=== PATIENT | female | born 1975 | race Asian ===

== ENCOUNTER 2021-01-11 18:30 | Emergency (ER) | payer OTHER ==
[~2021-01-11] VITALS: Ht 165.1 cm; Wt 57.0 kg
[2021-01-11] MEDS ORDERED: ONDANSETRON HCL 4MG/2ML INJ IV STA (18:41)
[2021-01-11] MEDS ORDERED: HYDROMORPHONE HCL/PF 2MG/ML CPJ IV ONE ×2 (18:45→22:15)
[2021-01-11] MEDS ORDERED: SODIUM CHLORIDE 0.9% 1,000 ML IV ONE (18:45)
[2021-01-11] MEDS ORDERED: ETOMIDATE 2MG/ML 10ML VIAL IV ONE (21:00)
[2021-01-11] MEDS ORDERED: ONDANSETRON HCL 4MG/2ML INJ IV ONE (22:15)
[2021-01-11] MEDS ORDERED: HYDR-4348 MT (22:51)
[2021-01-11] MEDS ORDERED: ONDA4TAB5 MT (22:51)
[2021-01-11 23:00] VITALS: BP 111/61
== END 2021-01-11 23:00 | disposition home or self-care (01) ==
LOC: ER 18:30
DX: S62.231A Other displaced fracture of base of first metacarpal bone, right hand, initial encounter for closed fracture (principal); S16.1XXA Strain of muscle, fascia and tendon at neck level, initial encounter; S50.11XA Contusion of right forearm, initial encounter; Z85.038 Personal history of other malignant neoplasm of large intestine; Z20.822 Contact with and (suspected) exposure to COVID-19; Z90.49 Acquired absence of other specified parts of digestive tract; Z88.5 Allergy status to narcotic agent; V43.52XA Car driver injured in collision with other type car in traffic accident, initial encounter; Y93.89 Activity, other specified; Y92.488 Other paved roadways as the place of occurrence of the external cause
CPT/HCPCS: 26605; 72125; 73090; 73130; 81025; 96361; 96374; 96375; 96376; 99152; 99285; J1170; J2405; J3490; J7030